=== PATIENT | female | born 1945 | race Caucasian/White ===

== ENCOUNTER → 2016-08-22 | Outpatient (CLI) | payer OTHER ==
[~2016-08-22] MED LIST: ASPIR 8181 MG PO; CALCIUM 600 +1 EAC1 PO; CENTRUM SILVER1 EAC4 PO; CLARITIN10 MG PO; FISH OIL 1,001000 M2 PO; FLECAINIDE ACET50 M1 PO; PRADAXA150 MG; PRADAXA150 MG PO; SORINE 80 MG TA80 M1 PO; ZOCOR 20 MG TAB20 M1 PO
== END ==
LOC: RAD 11:40
DX: Z12.31 Encounter for screening mammogram for malignant neoplasm of breast (principal)

== ENCOUNTER → 2017-04-11 | Outpatient (CLI) | payer OTHER | LOC: RAD 11:40 | DX: M16.12 Unilateral primary osteoarthritis, left hip (principal) ==

== ENCOUNTER → 2017-10-12 | Outpatient (CLI) | payer OTHER ==
[2017-10-12 09:18] LABS: HEMATOCRIT 43.4 % (37.0-47.0); HEMOGLOBIN 14.9 gm/dL (12.0-15.0); MCH 30.1 pg (26.0-34.0); MCHC 34.3 g/dL (28.0-37.0); MCV 87.7 fL (80.0-100.0); RBC 4.95 mil/uL (4.20-5.00); RDW 14.4 % (10.5-14.5); WBC 8.8 thou/uL (4.0-11.0)
[2017-10-12 09:29] LABS: CALCIUM 9.6 mg/dL (8.5-10.1); CREATININE 0.8 mg/dL (0.6-1.0); POTASSIUM 4.2 mmol/L (3.5-5.1)
[2017-10-12 09:35] LABS: ALBUMIN 4.4 g/dL (3.4-5.0); TOTAL BILIRUBIN 0.3 mg/dL (<0.1-1.0); TOTAL PROTEIN 7.3 g/dL (6.4-8.2)
== END ==
LOC: RAD 08:48 → LABMALL 08:48 → CAT 10:10
PROVIDERS: Internal Medicine Cardiovascular Disease
DX: Z12.31 Encounter for screening mammogram for malignant neoplasm of breast (principal); I48.91 Unspecified atrial fibrillation; M47.894 Other spondylosis, thoracic region; Q25.6 Stenosis of pulmonary artery

== ENCOUNTER 2017-10-16 06:32 | Observation (INO) | payer OTHER ==
[~2017-10-16] VITALS: Ht 165.1 cm; Wt 99.9 kg
--- NOTE | ~2017-10-16 | P ---
[facility] [place] [address] PROCEDURE REPORT Name: ELIJAHSANDY NAMRATA Room #: 208-P [facility] Heydi M.R.#: [id number] Admission: 10/16/17 Attend Phys: Red Arias MD Discharge: 10/17/17 Date of : 45 Report #: [id number] THIS REPORT FOR: //name// CC: Irwin Arias PREOPERATIVE DIAGNOSIS: Paroxysmal atrial fibrillation. POSTOPERATIVE DIAGNOSIS: Paroxysmal atrial fibrillation. PROCEDURES PERFORMED: 1. AFib ablation, CPT code 96916. 2. 3D mapping, CPT code 91917. 3. Intracardiac echo, CPT code 18752. 4. Pacemaker interrogation, CPT code 51534. HISTORY OF PRESENT ILLNESS: The patient is a 71-year-old with history of paroxysmal AFib, here for an ablation. ANESTHESIA: The patient underwent general anesthesia with no anesthesia related complications. DESCRIPTION OF PROCEDURE: The patient underwent informed consent. We discussed the details of the procedure including the risks, which include but not limited to bleeding, infection, vascular damage as well as stroke or [place]. She understood these risks and is willing to proceed. Prior to the ablation, pacemaker was reprogrammed. At baseline, the patient was in sinus rhythm with sinus cycle length of 990 milliseconds, HI interval 180 milliseconds, QRS duration 100 milliseconds, QT interval 465 milliseconds. I obtained access to the right femoral vein x 3, placing an 8-Micronesian, 9-Micronesian and 7-Micronesian locking sheath using the modified Seldinger technique. Next, under fluoroscopy, a decapolar catheter was placed in the coronary sinus and an ICE catheter was placed in the right atrium. 3D geometry was created using the ICE catheter. Next, the patient was systemically heparinized and a transseptal was performed using an SL1 sheath and a [place] needle. Once in the left atrium, I created a 3D geometry using a Lasso catheter. Next, the SL1 sheath was exchanged for the cryo sheath and ablation was performed. I performed two 4-minute freezes in the left superior pulmonary vein. This vein isolated during the second freeze within 13 seconds. The left inferior pulmonary vein underwent two 4-minute freezes and this vein was also isolated. The right superior pulmonary vein underwent a 4-minute freeze and a 3-minute freeze and was isolated within 20 seconds of the second freeze. The right inferior pulmonary vein was isolated during the first freeze in less than 40 seconds and therefore a single 4-minute freeze was performed. Post-ablation, the patient was in sinus rhythm with sinus cycle length of 800 milliseconds, HI interval 160 milliseconds, QRS duration 100 milliseconds, QT interval of 448 milliseconds. As such, the procedure was concluded. The patient received systemic protamine and once ACT was within [address] [address] PROCEDURE REPORT Name: SANDY NAVA Room #: 208-P [facility] M.R.#: [id number] Admission: 10/16/17 Attend Phys: Red Arias MD Discharge: 10/17/17 Date of : 45 Report #: [id number] acceptable range, all catheters and sheaths were pulled. Hemostasis was obtained and the patient awoke neurologically and hemodynamically intact. Her pacemaker was reprogrammed back to its original settings and was found to be functioning normally. CONCLUSIONS: 1. Successful AFib ablation with isolation of the 4 pulmonary veins. 2. Successful pacemaker reprogramming. By: [id number] Red Arias MD /nt
--- NOTE | ~2017-10-16 | D ---
[facility] [place] [address] DISCHARGE SUMMARY Name: SANDY NAVA NAMRATA Room #: 208-P [facility] Heydi M.Olman.#: [id number] Admission: 10/16/17 Attend Phys: Red Arias MD Discharge: 10/17/17 Date of : 45 Report #: [id number] THIS REPORT FOR: //name// CC: Irwin Arias DISCHARGE DIAGNOSIS: Paroxysmal atrial fibrillation. PROCEDURES PERFORMED: AFib ablation. HISTORY: The patient is a 71-year-old with history of paroxysmal AFib, status post [employer] pacemaker implantation for a history of sick sinus syndrome with long conversion pauses. She has been having increased AFib, was here for an ablation. She underwent successful AFib ablation with isolation of 4 pulmonary veins with no complications. HOSPITAL COURSE: She was monitored in the CCU overnight with no issues. She denied any chest pain, shortness of breath, PND, orthopnea. She denied fevers or chills. On physical exam, heart regular rate and rhythm. Lungs were clear to auscultation and right groin showed no hematoma or bruising. On telemetry, she remained in sinus rhythm. Her vitals remained stable. As such, she was deemed stable for discharge home. Discharge instructions were reviewed. She will continue with her current medical regimen including flecainide and Eliquis therapy. She will see me back in the clinic in 3 months. <ELECTRONICALLY SIGNED> By: Red Arias MD 10/23/17 1329 [id number] Red Arias MD /nt
--- NOTE | ~2017-10-16 | H ---
[address] [address] HISTORY AND PHYSICAL Name: SANDY NAVA NAMRATA Room #: 208-P [facility] M.R.#: [id number] Admission: 10/16/17 Attend Phys: Red Arias MD Discharge: 10/17/17 Date of : 45 Report #: [id number] THIS REPORT FOR: //name// CC: Irwin Arias DATE OF SERVICE: 10/16/2017 HISTORY OF PRESENT ILLNESS: The patient is a 71-year-old with history of paroxysmal AFib and sick sinus syndrome, status post pacemaker implantation, who has had continued breakthrough episodes of AFib, despite antiarrhythmic drugs and is here for an ablation. PAST MEDICAL HISTORY: As above. SOCIAL HISTORY: Does not smoke. FAMILY HISTORY: Noncontributory. ALLERGIES: No known drug allergies. MEDICATIONS: Have been reviewed. REVIEW OF SYSTEMS: A 12-point review of systems performed and is negative other than mentioned above. PHYSICAL EXAMINATION: VITAL SIGNS: Stable. GENERAL: In no acute distress. HEENT: Oropharynx is clear. NECK: Supple, no thyromegaly. HEART: Regular rate and rhythm. LUNGS: Clear to auscultation bilaterally. ABDOMEN: Soft, nontender, nondistended. EXTREMITIES: No clubbing, cyanosis, edema. NEUROLOGIC: Cranial nerves 2-12 intact. LABORATORY DATA: Reviewed and are within normal limits. ASSESSMENT: Atrial fibrillation. [address] [place] [address] HISTORY AND PHYSICAL Name: SANDY ANVA Room #: 208-P [facility] Heydi M.R.#: [id number] Admission: 10/16/17 Attend Phys: Red Arias MD Discharge: 10/17/17 Date of : 45 Report #: [id number] PLAN: We will proceed with AFib ablation. By: 1359 1416 Red Arias MD /nt
--- NOTE | ~2017-10-16 | EKG ---
[address] [place] [address] ELECTROCARDIOGRAM REPORT Name: SANDY NAVA Room #: 208-P [facility].R.#: [id number] Admission: 10/16/17 Attend Phys: Red Arias MD Discharge: Date of : 45 Report #: [id number] THIS REPORT FOR: //name// [facility] Test Date: 2017-10-17 Test Time: 06:20:17 Pat Name: SANDY NAVA Department: Room: 208 P Gender: F Crab Fisherman: CHRISTIAN : 1945 Requested By: Red Arias Order Number: [id number] MD: Mor Elkins Measurements Intervals [place] Rate: 82 P: 60 NV: 163 QRS: 51 QRSD: 108 T: 62 QT: 363 QTc: 424 Interpretive Statements Sinus rhythm Borderline low voltage, extremity leads Nonspecific T wave abnormality Compared to ECG 05/07/2015 07:56:53 No significant changes Electronically Signed On 10-17-2017 9:02:39 CDT by Mor Elkins [email or web address] <ELECTRONICALLY SIGNED> By: Mor Elkins MD, [facility] [phone] Mor Elkins MD, [facility] /EPI
[2017-10-16 07:10] LABS: ABSOLUTE NEUTROPHILS 5.6 thou/uL (1.4-8.2); HEMATOCRIT 41.7 % (37.0-47.0); HEMOGLOBIN 14.3 gm/dL (12.0-15.0); LYMPHOCYTES 28.8 % (24.0-44.0); MCH 30.2 pg (26.0-34.0); MCHC 34.3 g/dL (28.0-37.0); MCV 88.2 fL (80.0-100.0); MONOCYTES 7.7 % (1.0-8.0); PLATELET COUNT 376 thou/uL (150-400); POLYS 60.5 % (36.0-66.0); RBC 4.73 mil/uL (4.20-5.00); WBC 9.3 thou/uL (4.0-11.0)
[2017-10-16 07:11] VITALS: BP 138/72
[2017-10-16 07:16] LABS: CALCIUM 9.4 mg/dL (8.5-10.1); CREATININE 0.8 mg/dL (0.6-1.0); POTASSIUM 3.8 mmol/L (3.5-5.1)
[2017-10-16 07:21] LABS: APTT 27.6 Seconds (24.5-32.8); PROTIME 9.9 Seconds (9.3-11.4)
[2017-10-16 07:22] LABS: ALBUMIN 4.1 g/dL (3.4-5.0); TOTAL BILIRUBIN 0.4 mg/dL (<0.1-1.0); TOTAL PROTEIN 7.3 g/dL (6.4-8.2)
[2017-10-16] MEDS ORDERED: ELIQUIS5 MG PO (07:32)
[2017-10-16] MEDS ORDERED: TOPROL XL25 MG PO (07:35)
[2017-10-16 11:45] VITALS: BP 117/60
[2017-10-16 14:00] VITALS: BP 107/54
[2017-10-16 15:00] VITALS: BP 107/54
[2017-10-16 21:30] VITALS: BP 114/55
[2017-10-16 23:49] VITALS: BP 121/52
[2017-10-17 04:41] VITALS: BP 120/64
[2017-10-17 08:00] VITALS: BP 118/59
[2017-10-17 09:36] VITALS: BP 118/59
== END 2017-10-17 10:30 | disposition home or self-care (01) ==
LOC: CATH 06:32 → 2N 11:55
PROVIDERS: Internal Medicine Cardiovascular Disease
DX: I48.0 Paroxysmal atrial fibrillation (principal); I49.5 Sick sinus syndrome; Z95.0 Presence of cardiac pacemaker
CPT/HCPCS: 62110; 62900; 65020; 65040; 65043; 70005

== ENCOUNTER 2017-10-17 21:12 | Emergency (ER) | payer OTHER ==
[~2017-10-17] VITALS: Ht 165.1 cm; Wt 95.7 kg
--- NOTE | ~2017-10-17 | EKG ---
[address] [place] [address] ELECTROCARDIOGRAM REPORT Name: SANDY NAVA [id number] Admission: 10/17/17 Attend Phys: Discharge: 10/18/17 Date of : 45 Report #: [id number] THIS REPORT FOR: //name// [facility] ED Test Date: 2017-10-17 Test Time: 21:41:00 Pat Name: SANDY NAVA Department: Room: Gender: F Fur Tanner: shaw : 1945 Requested By: Ras Christensen Order Number: [id number] MD: Mor Elkins Measurements Intervals [place] Rate: 80 P: 43 IA: 159 QRS: 35 QRSD: 107 T: 54 QT: 379 QTc: 438 Interpretive Statements Sinus rhythm Compared to ECG 10/17/2017 06:20:17 No significant change was found Electronically Signed On 10-19-2017 7:37:53 CDT by Mor Elkins [email or web address] <ELECTRONICALLY SIGNED> By: Mor Elkins MD, [facility] 10/19/17 0737 [id number] Mor Elkins MD, [facility] /EPI
[~2017-10-17 21:12] MED LIST changes: +ELIQUIS5 MG PO; +TOPROL XL25 MG PO
[2017-10-17 21:52] LABS: ABSOLUTE NEUTROPHILS 9.9 thou/uL (1.4-8.2); BASOPHILS 0.4 % (0.0-2.0); EOSINOPHILS 2.6 % (0.0-3.0); HEMATOCRIT 38.1 % (37.0-47.0); LYMPHOCYTES 9.9 % (24.0-44.0); MCH 29.9 pg (26.0-34.0); MCHC 34.1 g/dL (28.0-37.0); MCV 87.7 fL (80.0-100.0); MONOCYTES 8.2 % (1.0-8.0); PLATELET COUNT 303 thou/uL (150-400); POLYS 78.9 % (36.0-66.0); RBC 4.35 mil/uL (4.20-5.00); RDW 14.4 % (10.5-14.5); WBC 12.5 thou/uL (4.0-11.0)
[2017-10-17 22:00] LABS: CALCIUM 9.3 mg/dL (8.5-10.1); CREATININE 0.8 mg/dL (0.6-1.0); POTASSIUM 4.1 mmol/L (3.5-5.1)
[2017-10-17 22:09] LABS: TOTAL BILIRUBIN 0.3 mg/dL (<0.1-1.0); TOTAL PROTEIN 7.1 g/dL (6.4-8.2)
[2017-10-17 22:11] LABS: TROPONIN-I 1.7 ng/mL (<0.06)
[2017-10-17 22:32] LABS: URINE BILIRUBIN NEGATIVE (Negative); URINE BLOOD NEGATIVE (Negative); URINE CLARITY CLEAR; URINE COLOR YELLOW; URINE GLUCOSE-RANDOM* NEGATIVE (Negative); URINE KETONES NEGATIVE (Negative); URINE LEUKOCYTES-REFLEX TRACE (Negative); URINE NITRITE-REFLEX NEGATIVE (Negative); URINE PROTEIN (DIPSTICK) NEGATIVE (Negative); URINE SPECIFIC GRAVITY <= 1.005 (1.005-1.035); URINE UROBILINOGEN 0.2 E.U./dl (0.2-1.0)
== END 2017-10-18 00:35 | disposition home or self-care (01) ==
LOC: ER 21:12
PROVIDERS: Physician Assistant
DX: R50.82 Postprocedural fever (principal); R91.1 Solitary pulmonary nodule; I48.91 Unspecified atrial fibrillation; E78.00 Pure hypercholesterolemia, unspecified; I10 Essential (primary) hypertension; E78.5 Hyperlipidemia, unspecified; Z90.49 Acquired absence of other specified parts of digestive tract

== ENCOUNTER → 2018-07-09 | Outpatient (CLI) | payer OTHER | LOC: CAT 14:56 | DX: R91.1 Solitary pulmonary nodule (principal); R06.02 Shortness of breath; I70.0 Atherosclerosis of aorta; Z98.82 Breast implant status; Z90.49 Acquired absence of other specified parts of digestive tract ==

== ENCOUNTER → 2018-10-18 | Outpatient (CLI) | payer OTHER | LOC: RAD 14:09 | DX: Z12.31 Encounter for screening mammogram for malignant neoplasm of breast (principal) ==

== ENCOUNTER → 2019-01-01 | Outpatient (CLI) | payer OTHER | LOC: CAT 13:03 → PUL 16:15 → CAT 16:21 | DX: R91.1 Solitary pulmonary nodule (principal); E07.89 Other specified disorders of thyroid; Z95.0 Presence of cardiac pacemaker ==

== ENCOUNTER → 2019-10-21 | Outpatient (CLI) | payer OTHER | LOC: RAD 11:27 | PROVIDERS: ATTEND Family Medicine | DX: Z12.31 Encounter for screening mammogram for malignant neoplasm of breast (principal) ==

== ENCOUNTER → 2020-01-06 | Outpatient (CLI) | payer OTHER | LOC: CAT 07:40 | PROVIDERS: ATTEND Internal Medicine Pulmonary Disease | DX: R91.1 Solitary pulmonary nodule (principal); M25.78 Osteophyte, vertebrae; K76.89 Other specified diseases of liver; J98.4 Other disorders of lung ==

== ENCOUNTER → 2020-04-02 | Outpatient (CLI) | payer OTHER | LOC: SJCVC 12:58 | PROVIDERS: ATTEND Internal Medicine Cardiovascular Disease | DX: I48.0 Paroxysmal atrial fibrillation (principal); I49.5 Sick sinus syndrome; G47.33 Obstructive sleep apnea (adult) (pediatric); I10 Essential (primary) hypertension; E78.00 Pure hypercholesterolemia, unspecified; Z79.899 Other long term (current) drug therapy; Z87.891 Personal history of nicotine dependence; Z95.0 Presence of cardiac pacemaker ==

== ENCOUNTER → 2020-11-02 | Outpatient (CLI) | payer OTHER | LOC: BC 14:00 | PROVIDERS: ATTEND Family Medicine | DX: Z12.31 Encounter for screening mammogram for malignant neoplasm of breast (principal) ==

== ENCOUNTER → 2021-01-06 | Outpatient (CLI) | payer OTHER | LOC: CAT 10:03 | PROVIDERS: ATTEND Internal Medicine Pulmonary Disease | DX: R91.1 Solitary pulmonary nodule (principal); I31.3 Pericardial effusion (noninflammatory); R16.0 Hepatomegaly, not elsewhere classified; M25.78 Osteophyte, vertebrae ==

== ENCOUNTER 2021-02-16 17:30 | Emergency (ER) | payer OTHER ==
[~2021-02-16] VITALS: Ht 165.1 cm; Wt 95.3 kg
[2021-02-16 20:00] VITALS: BP 153/88
[2021-02-17] MEDS ORDERED: LISINOPRIL10 MG PO (00:32)
== END 2021-02-16 20:00 | disposition home or self-care (01) ==
LOC: ER 17:30
DX: S61.211A Laceration without foreign body of left index finger without damage to nail, initial encounter (principal); I48.91 Unspecified atrial fibrillation; E78.00 Pure hypercholesterolemia, unspecified; I10 Essential (primary) hypertension; E78.5 Hyperlipidemia, unspecified; Z90.710 Acquired absence of both cervix and uterus; Z98.890 Other specified postprocedural states; Z90.49 Acquired absence of other specified parts of digestive tract; Z79.899 Other long term (current) drug therapy; Z79.891 Long term (current) use of opiate analgesic; Z87.891 Personal history of nicotine dependence; W26.8XXA Contact with other sharp object(s), not elsewhere classified, initial encounter; Y93.89 Activity, other specified; Y92.89 Other specified places as the place of occurrence of the external cause; Y99.8 Other external cause status

== ENCOUNTER 2021-02-17 16:57 | Emergency (ER) | payer OTHER ==
[~2021-02-17] VITALS: Ht 165.1 cm; Wt 80.7 kg
[2021-02-17 16:57] VITALS: BP 163/68
[~2021-02-17 16:57] MED LIST changes: +LISINOPRIL10 MG PO
== END 2021-02-17 20:12 | disposition home or self-care (01) ==
LOC: ER 16:57
DX: S61.211D Laceration without foreign body of left index finger without damage to nail, subsequent encounter (principal); I48.91 Unspecified atrial fibrillation; E78.00 Pure hypercholesterolemia, unspecified; I10 Essential (primary) hypertension; Z90.710 Acquired absence of both cervix and uterus; Z98.890 Other specified postprocedural states; Z90.49 Acquired absence of other specified parts of digestive tract; Z79.891 Long term (current) use of opiate analgesic; Z79.1 Long term (current) use of non-steroidal anti-inflammatories (NSAID); Z79.899 Other long term (current) drug therapy; Z87.891 Personal history of nicotine dependence; W45.8XXD Other foreign body or object entering through skin, subsequent encounter

== ENCOUNTER → 2021-03-30 | Outpatient (CLI) | payer OTHER | END | disposition home or self-care (01) | LOC: SJCVCIMAG 10:10 | PROVIDERS: ATTEND Internal Medicine Cardiovascular Disease | DX: I08.1 Rheumatic disorders of both mitral and tricuspid valves (principal); I48.0 Paroxysmal atrial fibrillation; I49.5 Sick sinus syndrome; E78.00 Pure hypercholesterolemia, unspecified; I10 Essential (primary) hypertension; Z98.42 Cataract extraction status, left eye; Z98.41 Cataract extraction status, right eye; Z98.890 Other specified postprocedural states; Z95.0 Presence of cardiac pacemaker; Z87.891 Personal history of nicotine dependence; Z88.8 Allergy status to other drugs, medicaments and biological substances ==